=== PATIENT | female | born 1950 | race Two or more races ===

== ENCOUNTER 2017-05-04 10:51 | Inpatient (IN) | payer OTHER, MEDICARE ==
[~2017-05-04] VITALS: Ht 167.6 cm; Wt 65.8 kg
--- NOTE | 2017-05-04 11:00 | NUR ---
BIB SON FROM HOME FOR MISTERNAL CHEST PAIN, NON RADIATING, ON AND OFF X 2 WEEKS,. PATIENT IS AAO4. APPEARS IN NO APPARENT DISTRESS,. RESPIRATION EVEN AND UNLABORED. SKIN IS WARM TO TOUCH AND NON DIAPHORETIC. PATIENT IS AFEBRILE. VSS. GOWNED AND PLACED PT ON TELE MONITOR
--- NOTE | 2017-05-04 11:06 | NUR ---
MD TIERNEY AT BEDSIDE
[2017-05-04] MEDS ORDERED: ASPIRIN EC 81 MG TABLET.DR PO ONE ×2 (11:12→11:30)
--- NOTE | 2017-05-04 11:18 | NUR ---
CALLED NURSING SUP. FOR TELE BED
[2017-05-04 11:21] LABS: BASOPHILS % (AUTO) 0.2 % (0.0-2.0); EOSINOPHILS # (AUTO) 0.1 /CMM (0.0-0.7); EOSINOPHILS % (AUTO) 1.2 % (0.0-6.0); HEMATOCRIT 38 % (33-45); HEMOGLOBIN 12.7 g/dL (11.5-14.8); LYMPHOCYTES # (AUTO) 1.7 /CMM (0.8-4.8); LYMPHOCYTES % (AUTO) 23.7 % (20.0-44.0); MEAN CORPUSCULAR HEMOGLOBIN 29 PG (26.0-33.0); MEAN CORPUSCULAR HGB CONC 33 g/dl (31.0-36.0); MEAN CORPUSCULAR VOLUME 87 fL (82-100); MONOCYTES # (AUTO) 0.5 /CMM (0.1-1.30); MONOCYTES % (AUTO) 6.8 % (2.0-12.0); NEUTROPHILS # (AUTO) 5.1 /CMM (1.8-8.9); NEUTROPHILS % (AUTO) 68.1 % (43.0-81.0); PLATELET COUNT (AUTO) 251 /CMM (150-450); RDW COEFFICIENT OF VARIATION 12.2 (11.5-15.0); RED BLOOD CELL COUNT(AUTO) 4.36 MIL/uL (4.0-5.2); WHITE BLOOD COUNT (AUTO) 7.4 K/uL (4.3-11.0)
[2017-05-04] MEDS ORDERED: IV NS 0.9% 500 ML BAG IV ONE (11:30)
[2017-05-04 11:32] LABS: CALCIUM, SERUM 9.1 mg/dL (8.5-10.1); CARBON DIOXIDE 28 mmol/L (21-32); CHLORIDE 108 mmol/L (98-107); CREATININE 0.7 mg/dL (0.6-1.3); GLUCOSE 97 mg/dL (74-106); POTASSIUM 3.6 mmol/L (3.5-5.1); SODIUM SERUM 143 mmol/L (136-145); UREA NITROGEN, BLOOD 11 mg/dL (7-18)
[2017-05-04 11:35] LABS: INR 1.02 (0.87-1.13); PROTHROMBIN TIME 10.6 SECS (9.5-12.7)
[2017-05-04 11:38] LABS: ALANINE AMINOTRANSFERASE 22 U/L (12-78); ALBUMIN 3.5 g/dL (3.4-5.0); ALKALINE PHOSPHATASE 77 U/L (46-116); ASPARTATE AMINOTRANSFERASE 19 U/L (15-37); BILIRUBIN,DIRECT 0.1 mg/dL (0.0-0.2); BILIRUBIN,TOTAL 0.5 mg/dL (0.2-1.0); LIPASE 126 U/L (73-393); TOTAL PROTEIN, SERUM 6.6 g/dL (6.4-8.2)
[2017-05-04 11:39] LABS: TROPONIN I < 0.017 ng/mL (0.00-0.056)
[2017-05-04] MEDS ORDERED: ATEN25TA PO (11:55)
[2017-05-04] MEDS ORDERED: ASPI-991 PO (11:55)
[2017-05-04] MEDS ORDERED: ATOR40TA PO (11:56)
--- NOTE | 2017-05-04 12:07 | NUR ---
AURORA PAGED, CRUSHER WET GROUND MICA
[2017-05-04 12:12] LABS: APPEARANCE,URINE Clear (CLEAR); BILIRUBIN,URINE Negative (NEGATIVE); BLOOD, URINE Moderate Ery/uL (NEGATIVE); COLOR,URINE Yellow (YELLOW); KETONES,URINE Negative (NEGATIVE); LEUKOCYTE ESTERASE ,URINE Negative (NEGATIVE); NITRITE, URINE Negative (NEGATIVE); PROTEIN,URINE Negative (NEGATIVE); UGLUCOSE Negative (NEGATIVE); UROBILINOGEN,URINE 0.2 EU/dL (0.2)
[2017-05-04 12:21] LABS: BACTERIA,URINE Few /HPF (None Seen); SQUAMOUS EPITHELIAL CELL,UR Few /HPF (None Seen); WBC,URINE 0-2 /HPF (0-3)
--- NOTE | 2017-05-04 12:25 | NUR ---
REPORT GIVEN TO STEFANO ESCALANTE FOR CONTINUITY OF CARE
[2017-05-04 13:24] VITALS: BP 122/70
[2017-05-04] MEDS ORDERED: MORPHINE SULFATE INJ 2 MG/ML DISP.SYRIN IV PRN (13:30)
[2017-05-04] MEDS ORDERED: Z GUARD REMEDY 2 OZ OINT TP PRN (13:30)
[2017-05-04] MEDS ORDERED: NITROGLYCERIN 0.4 MG/TAB BOTTLE SL PRN (13:30)
[2017-05-04] MEDS ORDERED: ONDANSETRON HCL/PF 4 MG/2 ML VIAL IVP PRN (13:30)
[2017-05-04] MEDS ORDERED: MAG HYDROX/AL HYDROX/SIMETH 30 ML UDC PO PRN (13:30)
[2017-05-04] MEDS ORDERED: HYDROCODONE/APAP 5/325MG 1 EACH TABLET PO PRN (13:30)
[2017-05-04] MEDS ORDERED: ACETAMINOPHEN 325 MG TABLET PO PRN (13:30)
[2017-05-04] MEDS ORDERED: MAGNESIUM HYDROXIDE 30 ML UDC PO PRN (13:30)
[2017-05-04] MEDS ORDERED: ZOLPIDEM TARTRATE 5 MG TABLET PO PRN (13:30)
--- NOTE | 2017-05-04 14:11 | NUR ---
EKG CANCEL AT 1300. PT HAD EKG DONE IN ER. SPOKE WITH DR VELASCO. PER MD TO DO EKG IN 6HRS FROM TIME ER EKG WAS DONE. WILL PERFORM EKG AT 1700. RN AND AWARE.
--- NOTE | 2017-05-04 14:17 | NUR ---
WINDSMITHBEEH[facility] KILN CHARCOAL BURNER NOTE: ADMITTED PT FROM ER W/DX OF CHEST PAIN UNDER DR. DARRON BRANNON. PATIENT A&OX4, BELONGINGS CHECKED. VS TAKEN. HOSPITAL ORIENTATION DONE. PLACED ON TELE MONITOR. BED LOW, LOCKED WITH CALL LIGHT WITHIN REACH, BED ALARM ON. EKG AND TROPONIN ORDERED. LAC IV HEP LOCK INTACT W/NO S/S OF INFECTION. NO COMPLAINTS ON PAIN OR DISCOMFORT AT THIS TIME. ALL NEEDS MET AND ANTICIPATED. WILL CONTINUE TO MONITOR CLOSELY.
--- NOTE | 2017-05-04 15:36 | NUR ---
JOURNAL BOX INSPECTOR NOTE STRESS TEST CONSENT SIGNED BY PATIENT
[2017-05-04 16:00] VITALS: BP_SYST 129; BP_DIAS 69; BP_DIAS 99
[2017-05-04] MEDS: ATENOLOL 25 MG TABLET PO SCH (16:06)
--- NOTE | 2017-05-04 17:17 | NUR ---
MOTHER'S HELPER NOTE 2D ECHO AND EKG DONE ORDERED
--- NOTE | 2017-05-04 19:05 | NUR ---
RN OPENING NOTES RECEIVED REPORT FROM AVA AGARWAL. PATIENT A/A/O X4, MOSTLY HAITIAN SPEAKING. BREATHING EVEN AND UNLABORED, ON RA. NO SOB OR RESPIRATORY DISTRESS. ON TELE SINUS RHYTHM IN THE HIGH 60S. DENIES ANY CHEST PAIN OR DISCOMFORT @ THIS TIME. LEFT AC #20 CDI AND FLUSHING WELL. CALL LIGHT WITHIN REACH, FAMILY @ BEDSIDE. WILL CONTINUE TO MONITOR.
--- NOTE | 2017-05-04 19:33 | NUR ---
HOSE SEAMER CLOSING NOTE: PATIENT A&OX4, AMBULATORY, CONTINENT. ON ROOM AIR WITH NO SOB. BED LOW, LOCKED WITH CALL LIGHT WITHIN REACH, BED ALARM ON. LAC IV HEP LOCK INTACT AND PATENT. FAMILY AT BEDSIDE. ALL NEEDS MET AND ANTICIPATED. WILL ENDORSE TO PM NURSE FOR SHANICE.
[2017-05-04 20:00] VITALS: BP 126/73
--- NOTE | 2017-05-04 20:00 | NUR ---
RN NOTES LEFT AC IV REMOVED B/C PATIENT C/O TOO MUCH PAIN AND DISCOMFORT W/ IV SITE. REQUESTED TO BE REMOVED BY PATIENT. RISKS & BENEFITS EXPLAINED.
[2017-05-04 20:15] VITALS: BP 126/73
[2017-05-04] MEDS ORDERED: ATORVASTATIN 40 MG TABLET PO SCH (22:00)
[2017-05-05] VITALS (7 sets, daily range): BP systolic 99–137; BP diastolic 54–99
--- NOTE | 2017-05-05 02:45 | NUR ---
TELE/RN NOTES RECEIVED PT IN STABLE CONDITION. SLEEPING AT THIS TIME. BREATHING EVENLY ON RA. TELE READING NSR. NPO MAINTAINED FOR STRESS TEST IN AM. NO COMPLAINTS AND APPEARS COMFORTABLE. GRANDSON AT BEDSIDE. BED AT LOWEST POSITION AND LOCKED, SRX3 UP, HOB ELEVATED, SIDE TABLE AND CALL NG WITHIN REACH. WILL CONTINUE TO MONITOR.
--- NOTE | 2017-05-05 07:25 | NUR ---
TELE/RN NOTES A&OX4. RA WITH NO SOB. TELE READING NSR. NPO STATUS MAINTAINED. PT MADE AWARE SHE NEEDS IV FOR STRESS TEST. VERBALIZED UNDERSTANDING AND WILL ALLOW TO HAVE IT INSERTED THIS MORNING. NO EPISODE OF CHEST PAIN AND NO OTHER CONCERNS MADE. FAMILY AT BEDSIDE. ENDORSED TO AM SHIFT FOR CONTINUITY OF CARE. SIDE TABLE AND CALL NG WITHIN REACH.
[2017-05-05 07:29] LABS: EOSINOPHILS # (AUTO) 0.1 /CMM (0.0-0.7); EOSINOPHILS % (AUTO) 1.6 % (0.0-6.0); HEMATOCRIT 38 % (33-45); HEMOGLOBIN 13.1 g/dL (11.5-14.8); LYMPHOCYTES # (AUTO) 1.9 /CMM (0.8-4.8); LYMPHOCYTES % (AUTO) 20.7 % (20.0-44.0); MEAN CORPUSCULAR HEMOGLOBIN 30 PG (26.0-33.0); MEAN CORPUSCULAR HGB CONC 34 g/dl (31.0-36.0); MEAN CORPUSCULAR VOLUME 88 fL (82-100); MONOCYTES # (AUTO) 0.6 /CMM (0.1-1.30); MONOCYTES % (AUTO) 6.4 % (2.0-12.0); NEUTROPHILS # (AUTO) 6.4 /CMM (1.8-8.9); NEUTROPHILS % (AUTO) 71.3 % (43.0-81.0); PLATELET COUNT (AUTO) 230 /CMM (150-450); RDW COEFFICIENT OF VARIATION 13.3 (11.5-15.0); RED BLOOD CELL COUNT(AUTO) 4.34 MIL/uL (4.0-5.2)
[2017-05-05] MEDS ORDERED: PANTOPRAZOLE 40 MG TABLET.DR PO SCH (07:30)
[2017-05-05 07:44] LABS: CALCIUM, SERUM 8.5 mg/dL (8.5-10.1); CREATININE 0.5 mg/dL (0.6-1.3); MAGNESIUM 1.8 mg/dL (1.8-2.4); POTASSIUM 3.4 mmol/L (3.5-5.1)
[2017-05-05] MEDS: ATENOLOL 25 MG TABLET PO SCH ×2 (09:00→17:00)
[2017-05-05] MEDS ORDERED: ASPIRIN EC 81 MG TABLET.DR PO SCH (09:00)
[2017-05-05] MEDS ORDERED: REGADENOSON 0.4 MG/5 ML DISP.SYRIN IVP ONE (12:00)
[2017-05-05] MEDS ORDERED: POTASSIUM CL. PREMIX PERIPHER. 50 ML IV SCH (12:08)
[2017-05-05] MEDS ORDERED: POTASSIUM CHLORIDE 20 MEQ TAB.PRT.SR PO SCH (12:30)
--- NOTE | 2017-05-05 12:43 | NUR ---
returned from [facility]- patient requesting remove IV because giving her anxiety. IV removed. nuclear medicine Dmitry stated ok to eat- npo d/gabbi.
[2017-05-05] MEDS ORDERED: Nitroglycerin SL (14:20)
--- NOTE | 2017-05-05 16:34 | NUR ---
NM;MPI WAS COMPLETED . TECH:RB
[2017-05-05 17:17] LABS: THYROID STIMULATING HORMONE 1.074 uIU/mL (0.358-3.74)
--- NOTE | 2017-05-05 17:45 | NUR ---
SPOKE TO DR. GREENE ABOUT [place] RESULTS. DR. GREENE SAID OK FOR PATIENT TO GO HOME WITH FAMILY, NO F/U APPOINTMENT. INFORMED PATIENT AND FAMILY OF THIS. FAMILY REQUESTED ALL DX RESULTS- THEY WERE PROVIDED. FAMILY INQUIRING ABOUT CT ABD RESULTS, DR. ROB STATED "THEY ARE INCIDENTAL FINDINGS, NO ACTIVE PROBLEMS AND THERE IS NOTHING TO TALK ABOUT, IT IS A NEGATIVE CT SCAN." INFORMED PATIENT AND FAMILY OF THIS. THEY SAID OK AND AGREED WITH DISCHARGE PLAN. PROVIDED ALL D/C INFORMATION INCLUDING MEDICATION EDUCATION, RETURN IN CASE OF EMERGENCY, HEALTHY LIFE STYLE MODIFICATIONS AND ANXIETY COPING MECHANISMS. THEY VERBALIZED UNDERSTANDING AND THANKS. PATIENT HAS NO IV, PATIENT REFUSED VACCINES FOR FEAR OF EFFECTS. PATIENT WANTS TO WALK OUT TO CAR WITH FAMILY. PATIENT IS STABLE, VS STABLE AND RECORDED IN D/C SUMMARY.PRESCRIPTION PROVIDED. PHONE NUMBER OF MD PROVIDED. FAMILY VERBALIZED WITH FOLLOW UP WITH PCP.
[2017-05-05 17:46] LABS: PHOSPHORUS 3.4 mg/dL (2.5-4.9)
== END 2017-05-05 17:58 | disposition home or self-care (01) | DRG 243 ==
LOC: EDBD → MERGE 10:52 → ER 10:52 → TELE1 12:51
DX: K21.9 Gastro-esophageal reflux disease without esophagitis (principal); I10 Essential (primary) hypertension; E78.5 Hyperlipidemia, unspecified
CPT/HCPCS: 36415; 71010-TC; 72128-TC; 80048-TC; 80061-TC; 80076-TC; 81000-TC; 83690-TC; 83735-TC; 83880; 84100-TC; 84443-TC; 84484-TC; 85025-TC; 85730-TC; 87081-TC; 93307-TC; A4606; A9502; J2785; J3490; J7040; Z7610

== ENCOUNTER 2019-06-09 08:09 | Inpatient (IN) | payer MEDICARE, OTHER ==
[~2019-06-09] VITALS: Ht 165.1 cm; Wt 69.4 kg
[~2019-06-09 08:09] MED LIST: ASPI-1152 PO; ATEN25TA PO; ATOR40TA PO; Nitroglycerin SL
--- NOTE | 2019-06-09 08:15 | NUR ---
BS on arrival is 154, nadia urbina made aware.
--- NOTE | 2019-06-09 08:16 | NUR ---
DR CALLAWAY AT BS FOR EVAL.
--- NOTE | 2019-06-09 08:25 | NUR ---
МАРИЯ RA 87 from Home "Back pain/generalized weakness x3days worse today ?fainted/almost fainted +Panic/Tachy on scene " Patient a/ox2-3 cambodian speaking, sons at bedside, providing history. Patient changed into gown and attached to the monitor, moaning and appears to be anxious. Patient kept comfortable.
[2019-06-09] MEDS ORDERED: IV NS 0.9% 1,000 ML BAG IV ONE ×2 (08:30→10:00)
[2019-06-09 08:36] LABS: WHITE BLOOD COUNT (AUTO) 12.5 K/uL (4.3-11.0)
[2019-06-09 08:44] LABS: BASOPHILS % (AUTO) 0.1 % (0.0-2.0); HEMATOCRIT 41 % (33-45); HEMOGLOBIN 13.7 g/dL (11.5-14.8); LYMPHOCYTES # (AUTO) 0.6 /CMM (0.8-4.8); MEAN CORPUSCULAR HGB CONC 34 g/dl (31.0-36.0); MEAN CORPUSCULAR VOLUME 88 fL (82-100); MONOCYTES # (AUTO) 0.9 /CMM (0.1-1.30); MONOCYTES % (AUTO) 7.4 % (2.0-12.0); NEUTROPHILS # (AUTO) 10.9 /CMM (1.8-8.9); NEUTROPHILS % (AUTO) 87.5 % (43.0-81.0); PLATELET COUNT (AUTO) 198 /CMM (150-450); RED BLOOD CELL COUNT(AUTO) 4.58 MIL/uL (4.0-5.2)
[2019-06-09 08:47] LABS: CARBON DIOXIDE 27 mmol/L (21-32); CHLORIDE 101 mmol/L (98-107); CREATININE 0.8 mg/dL (0.6-1.3); GLUCOSE 163 mg/dL (74-106); POTASSIUM 3.6 mmol/L (3.5-5.1); SODIUM SERUM 136 mmol/L (136-145); UREA NITROGEN, BLOOD 16 mg/dL (7-18)
[2019-06-09 08:53] LABS: ALANINE AMINOTRANSFERASE 20 U/L (12-78); ALBUMIN 3.2 g/dL (3.4-5.0); ALKALINE PHOSPHATASE 76 U/L (46-116); ASPARTATE AMINOTRANSFERASE 18 U/L (15-37); BILIRUBIN,DIRECT 0.2 mg/dL (0.0-0.2); TOTAL PROTEIN, SERUM 7.1 g/dL (6.4-8.2)
--- NOTE | 2019-06-09 09:09 | NUR ---
patient taken to ct.
[2019-06-09 09:27] LABS: APPEARANCE,URINE Slightly Cloudy (CLEAR); BILIRUBIN,URINE Negative (NEGATIVE); BLOOD, URINE Large Ery/uL (NEGATIVE); COLOR,URINE Dark (YELLOW); KETONES,URINE 80 (NEGATIVE); LEUKOCYTE ESTERASE ,URINE Small (NEGATIVE); NITRITE, URINE Positive (NEGATIVE); PROTEIN,URINE >=300 mg/dl (NEGATIVE); UGLUCOSE Negative (NEGATIVE); UROBILINOGEN,URINE 0.2 EU/dL (0.2)
[2019-06-09 09:43] LABS: BACTERIA,URINE 3+ /HPF (None Seen); RBC,URINE 51-80 /HPF (0-2); SQUAMOUS EPITHELIAL CELL,UR Few /HPF (None Seen); WBC,URINE TOO NUMEROUS TO COUN /HPF (0-3)
--- NOTE | 2019-06-09 09:48 | NUR ---
CALLED NURSING SUP. FOR TELE BED.
[2019-06-09] MEDS ORDERED: CEFTRIAXONE 1GM BAG (ER ONLY) 50 ML IV ONE ×2 (09:50→10:00)
[2019-06-09] MEDS ORDERED: ACETAMINOPHEN ES 500 MG TABLET ONE (09:54)
--- NOTE | 2019-06-09 10:03 | NUR ---
TELE1/RN REPORT FROM ER REPORT RECEIVED FROM ER NURSE YOON FOR PT TO BE ADMITTED FOR PYELONEPHRIS UNDER THE CARE OF YANA LICONA. AWAITING FOR PT'S ARRIVAL.
--- NOTE | 2019-06-09 10:15 | NUR ---
REPORT GIVEN TO ANDREA-STEFANO,TRANSPORTED PATIENT TO [facility] VIA ACLS PROTOCOL.
--- NOTE | 2019-06-09 10:30 | NUR ---
TELE1/CAR DELIVERER TO TELE1 - 115#1 PT ARRIVED VIA GURNEY ACCOMPANIED BY ER NURSE YOON WITH PT'S (2) SONS. PT A/O X 3, COMPLAINT OF HEADACHE. ON ROOM AIR SATURATING @ , RESPIRATIONS EVEN & UNLABORED, LUNG SOUNDS CLEAR. ON TELE WITH SINUS TACHY WITH PVCs, HR 107. ARRIVED WITH ON GOING IV INFUSION OF NS, IV SITE PATENT WITH NO S/S OF INFECTION. YANA LICONA, EXAMINED PT AT BEDSIDE. AWAITING FOR ADMISSION ORDERS. PT ORIENTED TO HER SURROUNDINGS, CL WITHIN REACHED AND SAFETY MAINTAINED.
[2019-06-09] MEDS ORDERED: TEMAZEPAM 15 MG CAPSULE PO PRN (11:00)
[2019-06-09] MEDS ORDERED: MORPHINE SULFATE INJ 2 MG/ML DISP.SYRIN IV PRN (11:00)
[2019-06-09] MEDS ORDERED: MAGNESIUM HYDROXIDE 30 ML UDC PO PRN (11:00)
[2019-06-09] MEDS ORDERED: MAG HYDROX/AL HYDROX/SIMETH 30 ML UDC PO PRN (11:00)
[2019-06-09] MEDS ORDERED: ERGO500014 PO (11:06)
[2019-06-09] MEDS ORDERED: DIAZ5TAB4 PO (11:06)
[2019-06-09] MEDS ORDERED: ESTR42.511 VG (11:06)
[2019-06-09] MEDS: IV NS 0.9% 1,000 ML IV PRN ×2 (11:26→18:51)
[2019-06-09 12:00] VITALS: BP 115/60
[2019-06-09] MEDS: ACETAMINOPHEN 325 MG TABLET PO PRN ×2 (14:33→20:08)
[2019-06-09 16:00] VITALS: BP 120/63
--- NOTE | 2019-06-09 16:00 | NUR ---
TELE1/RN FEVER PT NOTED WITH TEMP 101.2, PT ALREADY TOOK TYLENOL AROUND 1430, COOLING MEASURES GIVEN. ON GOING MONITORING.
--- NOTE | 2019-06-09 18:41 | NUR ---
TELE1/RN TEMP CHECK TEMP 97.5 ORALLY. NO CHANGE OF CONDITION.
--- NOTE | 2019-06-09 19:15 | NUR ---
TELE1/RN AM SHIFT END NOTES ALL NEEDS MET. NO ACUTE CHANGE OF CONDITION NOTED DURING THE SHIFT. PT ENDORSED TO PM NURSE TO CONTINUE CARE. CL WITHIN REACHED AND SAFETY MAINTAINED
--- NOTE | 2019-06-09 19:30 | NUR ---
MS RN OPENING NOTES RELIEVED PATIENT IN BED AWAKE/ALERT X3. PATIENT HAS CONT. NS ON LFA#20, 125ML/HR . PATIENT IS ON RA TOLERATING WELL. FAMILY AT BED SIDE. NO ACUTE DISTRESSES OR SOB IS NOTED AT THIS TIME. CALL WITHIN REACHED AND SAFETY MAINTAINED, BED LOCKED/LOW POSITION, WILL CONTINUE TO MONITOR.
[2019-06-09 20:00] VITALS: BP 129/70
[2019-06-09] MEDS: ONDANSETRON HCL/PF 4 MG/2 ML VIAL IVP PRN (20:30)
--- NOTE | 2019-06-10 00:03 | NUR ---
MS AGARWAL NOTE, PATIENT'S FAMILY REFUSED THE VITAL SIGNS AT THIS TIME. THEY WANT THE MOTHER TO SLEEP AND NOT BE INTERRUPTED.. Addendum: 06/10/19 at 0004 by INGRID SIFUENTES RN Amended: Links added.
[2019-06-10] MEDS: IV NS 0.9% 1,000 ML IV PRN ×2 (03:06→17:29)
[2019-06-10 04:00] VITALS: BP 118/60
[2019-06-10] MEDS: ACETAMINOPHEN 325 MG TABLET PO PRN ×3 (04:49→23:03)
--- NOTE | 2019-06-10 06:51 | NUR ---
MS RN OPENING NOTES PATIENT IN BED AWAKE/ALERT X3. PATIENT HAS CONT. NS ON LEFT HAND#22, 125ML/HR . PATIENT IS ON RA TOLERATING WELL. PATIENT HAD X3 EMESIS DURING NIGHT, ZOFRAN WAS ADMITTED. NO ACUTE DISTRESSES OR SOB IS NOTED AT THIS TIME. CALL LIGHT WITHIN REACHED AND SAFETY MAINTAINED, BED LOCKED/LOW POSITION, WILL ENDORSE TO AM NURSE FOR SHANICE.
[2019-06-10 07:22] LABS: CALCIUM, SERUM 7.9 mg/dL (8.5-10.1); CREATININE 0.7 mg/dL (0.6-1.3); MAGNESIUM 1.5 mg/dL (1.8-2.4); PHOSPHORUS 1.9 mg/dL (2.5-4.9)
[2019-06-10 07:26] LABS: POTASSIUM 2.6 mmol/L (3.5-5.1)
[2019-06-10 07:32] LABS: BASOPHILS % (AUTO) 0.2 % (0.0-2.0); HEMATOCRIT 34 % (33-45); HEMOGLOBIN 11.3 g/dL (11.5-14.8); LYMPHOCYTES # (AUTO) 0.5 /CMM (0.8-4.8); LYMPHOCYTES % (AUTO) 7.3 % (20.0-44.0); MEAN CORPUSCULAR HGB CONC 33 g/dl (31.0-36.0); MEAN CORPUSCULAR VOLUME 89 fL (82-100); MONOCYTES # (AUTO) 0.7 /CMM (0.1-1.30); NEUTROPHILS # (AUTO) 6.1 /CMM (1.8-8.9); NEUTROPHILS % (AUTO) 83.5 % (43.0-81.0); PLATELET COUNT (AUTO) 145 /CMM (150-450); RED BLOOD CELL COUNT(AUTO) 3.82 MIL/uL (4.0-5.2); WHITE BLOOD COUNT (AUTO) 7.3 K/uL (4.3-11.0)
[2019-06-10 08:00] VITALS: BP 116/62
[2019-06-10] MEDS ORDERED: ERGOCALCIFEROL (VITAMIN D 2) 50,000 UNIT CAPSULE PO SCH (08:00)
[2019-06-10] MEDS ORDERED: DIAZEPAM 5 MG TABLET PO PRN (08:00)
[2019-06-10] MEDS ORDERED: Magnesium 1GM/D5W 100ML PREMIX 100 ML IV SCH (08:00)
[2019-06-10] MEDS ORDERED: POTASSIUM CHLORIDE 20 MEQ TAB.PRT.SR PO ONE ×2 (08:00→09:00)
--- NOTE | 2019-06-10 08:00 | NUR ---
TELE1/RN AM SHIFT INITIAL NOTES RECEIVED PT AWAKE SITTING IN BED WITH HER SON AT BEDSIDE. PT A/O X 4, MICRONESIAN SPEAKING, DENIES ANY SYMPTOMS, NO ACUTE CHANGE OF CONDITION. ON ROOM AIR SATURATING @ 98%, RESPIRATIONS EVEN & UNLABORED, LUNG SOUNDS CLEAR. ON TELE MONITORING, SINUS RHYTHM, HR 97. WITH ON GOING IV INFUSION OF NS @ 125CC/HR, IV SITE PATENT WITH NO S/S OF INFECTION. PT IS COMFORTABLE, SCHEDULED AM MEDS TO BE GIVEN. CL WITHIN REACHED AND SAFETY MAINTAINED.
[2019-06-10] MEDS: Magnesium 1GM/D5W 100ML PREMIX 100 ML IV SCH ×2 (08:57→10:40)
[2019-06-10] MEDS ORDERED: K PHOS NEUTRAL 250 MG TABLET PO ONE (09:00)
[2019-06-10] MEDS: ATENOLOL 25 MG TABLET PO SCH ×2 (09:01→16:42)
[2019-06-10] MEDS: ASPIRIN EC 81 MG TABLET.DR PO SCH (09:01)
[2019-06-10] MEDS: ATORVASTATIN 40 MG TABLET PO SCH ×2 (09:01→22:14)
[2019-06-10] MEDS ORDERED: NEUTRA PHOS 1 POWD.PACKET PO ONE (09:30)
--- NOTE | 2019-06-10 09:59 | NUR ---
TELE11/RN ROUNDS - DR. GREENE PT SEEN & EVALUATED BY DR. GREENE. NO NEW ORDERS RECEIVED AT THIS TIME. MONITORING CONTINUED.
[2019-06-10 10:23] LABS: IRON, SERUM 10 ug/dl (50-175); TOTAL IRON BINDING CAPACITY 187 ug/dl (250-450)
[2019-06-10 10:38] LABS: FERRITIN 268 ng/mL (8-388); THYROID STIMULATING HORMONE 0.009 uIU/mL (0.358-3.74)
[2019-06-10] MEDS: ENOXAPARIN SODIUM 40 MG/0.4 ML DISP.SYRIN SQ SCH (10:40)
[2019-06-10] MEDS: HYDROCODONE/APAP 5/325MG 1 EACH TABLET PO PRN (10:53)
[2019-06-10] MEDS ORDERED: CEFTRIAXONE 1 G in IV D5W 50 ML IV SCH (11:00)
--- NOTE | 2019-06-10 11:00 | NUR ---
TELE1/RN ROUNDS - YNAA LICONA UPDATED PT'S CONDITION. PT SEEN & EXAMINED BY YANA LICONA. NO NEW ORDERS RECEIVED AT THIS TIME. MONITORING CONTINUED.
[2019-06-10] MEDS: PIPERACILLIN /TAZOBACTAM 3.375 G in IV D5W 50 ML IV SCH ×3 (11:56→23:45)
[2019-06-10] MEDS: POTASSIUM CHLORIDE 20 MEQ TAB.PRT.SR PO SCH ×2 (11:56→14:09)
[2019-06-10 12:00] VITALS: BP 127/66
--- NOTE | 2019-06-10 14:00 | NUR ---
TELE1/RN PHYSICAL THERAPY PT AMBULATED WITH PHYSICAL THERAPIST WITH MINIMUM ASSISTANCE, TOLERATED ACTIVITY.
[2019-06-10 16:00] VITALS: BP 130/60
[2019-06-10] MEDS ORDERED: ESTRADIOL TP SCH ×2 (17:00→22:00)
--- NOTE | 2019-06-10 19:21 | NUR ---
MS RN OPENING NOTES RELIEVED PATIENT IN BED AWAKE/ALERT X3. PATIENT HAS CONT. NS @125ML/HR . PATIENT IS ON RA TOLERATING WELL. FAMILY AT BED SIDE. NO ACUTE DISTRESSES OR SOB IS NOTED AT THIS TIME. PATIENT HAS LOW FEVER 100.4, WILL CONTINUE TO MONITOR. CALL WITHIN REACHED AND SAFETY MAINTAINED, BED LOCKED/LOW POSITION, WILL CONTINUE TO MONITOR.
[2019-06-10] MEDS: ONDANSETRON HCL/PF 4 MG/2 ML VIAL IVP PRN (19:30)
--- NOTE | 2019-06-10 20:31 | NUR ---
ENGRAVER COPPERPLATE NOTES, PATIENT'S FAMILY REFUSED THE VITAL SIGN AT 1999, THEY DIDN'T WANT HER TO BE INTERRUPTED SINCE SHE IS SLEEPING NOW. LOW FEVER NOTED AT 1700 100.4. WILL CONTINUE TO MONITOR Addendum: 06/10/19 at 2037 by INGRID SIFUENTES RN Amended: Links added.
[2019-06-10 21:00] VITALS: BP 134/77
[2019-06-10] MEDS: ESTRADIOL TP SCH (22:29)
[2019-06-11] VITALS (8 sets, daily range): BP systolic 100–125; BP diastolic 42–70
[2019-06-11] MEDS: IV NS 0.9% 1,000 ML IV PRN (03:40)
[2019-06-11] MEDS: PIPERACILLIN /TAZOBACTAM 3.375 G in IV D5W 50 ML IV SCH ×2 (05:58→12:28)
[2019-06-11] MEDS: ACETAMINOPHEN 325 MG TABLET PO PRN ×2 (06:26→19:56)
--- NOTE | 2019-06-11 06:36 | NUR ---
INTERACTIVE MEDIA DIRECTOR CLOSING NOTES PATIENT IN BED, AWAKE/ALERT X3. PATIENT HAS CONT. NS @125ML/HR. 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 PATIENT IS ON RA TOLERATING WELL. NO ACUTE DISTRESSES OR SOB IS NOTED AT THIS TIME. CALL LIGHT WITHIN REACHED AND SAFETY MAINTAINED, BED LOCK/LOW POSITION, WILL ENDORSE PATIENT TO AM SHIFT FOR SHANICE.
[2019-06-11 07:15] LABS: BASOPHILS % (AUTO) 0.3 % (0.0-2.0); EOSINOPHILS % (AUTO) 0.3 % (0.0-6.0); HEMATOCRIT 36 % (33-45); HEMOGLOBIN 12.1 g/dL (11.5-14.8); LYMPHOCYTES # (AUTO) 0.9 /CMM (0.8-4.8); LYMPHOCYTES % (AUTO) 18.1 % (20.0-44.0); MEAN CORPUSCULAR HGB CONC 33 g/dl (31.0-36.0); MEAN CORPUSCULAR VOLUME 89 fL (82-100); MONOCYTES # (AUTO) 0.5 /CMM (0.1-1.30); MONOCYTES % (AUTO) 9.8 % (2.0-12.0); NEUTROPHILS # (AUTO) 3.6 /CMM (1.8-8.9); NEUTROPHILS % (AUTO) 71.5 % (43.0-81.0); PLATELET COUNT (AUTO) 155 /CMM (150-450); RED BLOOD CELL COUNT(AUTO) 4.11 MIL/uL (4.0-5.2)
[2019-06-11 07:30] LABS: ALBUMIN 2.5 g/dL (3.4-5.0); BILIRUBIN,TOTAL 0.3 mg/dL (0.2-1.0); CALCIUM, SERUM 8.3 mg/dL (8.5-10.1); CREATININE 0.6 mg/dL (0.6-1.3); MAGNESIUM 1.8 mg/dL (1.8-2.4); PHOSPHORUS 2.1 mg/dL (2.5-4.9); POTASSIUM 3.2 mmol/L (3.5-5.1); TOTAL PROTEIN, SERUM 6.2 g/dL (6.4-8.2)
--- NOTE | 2019-06-11 08:00 | NUR ---
TELE1/RN AM SHIFT INITIAL NOTES RECEIVED PT ASLEEP IN BED, EASILY AROUSED, WITH HER SON AT BEDSIDE. A/O X 3, COMPLAINT OF HEADACHE, ALSO NOTED WITH ELEVATED TEMPERATURE OF 101.3, PT HAD JUST TAKEN TYLENOL FROM PREVIOUS SHIFT, COOLING MEASURES BEING APPLIED. ON ROOM AIR SATURATING @ 93%, RESPIRATIONS EVEN & UNLABORED, LUNG SOUNDS CLEAR. ON TELE MONITORING, SINUS TACHY, HR 111. WITH ON GOING IV INFUSION OF NS @ 125CC/HR, IV SITE PATENT WITH NO S/S OF INFECTION. SCHEDULED AM MEDS TO BE GIVEN. CL WITHIN REACHED AND SAFETY MAINTAINED.
[2019-06-11] MEDS: ATENOLOL 25 MG TABLET PO SCH ×2 (08:07→16:43)
[2019-06-11] MEDS: ASPIRIN EC 81 MG TABLET.DR PO SCH (08:07)
[2019-06-11] MEDS: ENOXAPARIN SODIUM 40 MG/0.4 ML DISP.SYRIN SQ SCH (08:07)
--- NOTE | 2019-06-11 08:55 | NUR ---
TELE1/RN ROUNDS - YANA LICONA UPDATED PT'S CONDITION. PT SEEN & EXAMINED BY YANA LICONA, NOTED NEW ORDER FOR POTASSIUM REPLACEMENT. TO BE CARRIED OUT.
[2019-06-11] MEDS ORDERED: IV NS 0.9% 1,000 ML IV PRN (08:56)
[2019-06-11] MEDS: POTASSIUM CHLORIDE 20 MEQ TAB.PRT.SR PO SCH ×3 (09:11→13:17)
[2019-06-11] MEDS: IBUPROFEN 400 MG TABLET PO PRN ×2 (09:13→17:11)
[2019-06-11] MEDS ORDERED: K PHOS NEUTRAL 250 MG TABLET PO ONE (11:00)
[2019-06-11] MEDS ORDERED: NEUTRA PHOS 1 POWD.PACKET PO SCH (11:30)
[2019-06-11] MEDS ORDERED: POTASSIUM CHLORIDE 20 MEQ TAB.PRT.SR PO SCH (12:00)
[2019-06-11] MEDS: SOD FERRIC GLUC 125 MG in IV NS 0.9% 100 ML IV SCH (13:17)
[2019-06-11] MEDS ORDERED: PIPERACILLIN /TAZOBACTAM 3.375 G in IV D5W 100 ML IV SCH (17:00)
--- NOTE | 2019-06-11 17:00 | NUR ---
MS1/RN AFTERNOON ROUNDS PT HAS BEEN VOIDING FREQUENTLY WITH MINIMAL OUTPUT THROUGHOUT THE DAY, COMPLAINING OF ABDOMEN DISCOMFORT AND HEADACHE. MONITORING.
--- NOTE | 2019-06-11 18:00 | NUR ---
MS1/RN ROUNDS - SENIOR MANAGING DIRECTOR DIANA BLADDER SCANNED PT, RESULTED TO 601 URINE RETENTION. VERBAL ORDER RECEIVED TO INSERT MERCADO CATHETER. ORDER NOTED AND CARRIED OUT.
[2019-06-11] MEDS: CEFTRIAXONE 2 G in IV D5W 100 ML IV SCH (18:37)
--- NOTE | 2019-06-11 19:50 | NUR ---
MS1/RN AM SHIFT END NOTES ALL NEEDS MET. MERCADO CATHETER INTACT AND IV SITE PATENT ON TKO. PT ENDORSED TO PM NURSE TO CONTINUE CARE. CL WITHIN REACHED AND SAFETY MAINTAINED.
[2019-06-11] MEDS: HYDROCODONE/APAP 5/325MG 1 EACH TABLET PO PRN (19:51)
[2019-06-11] MEDS: TAMSULOSIN 0.4 MG CAP.SR.24H PO SCH (21:21)
[2019-06-11] MEDS: ATORVASTATIN 40 MG TABLET PO SCH (21:21)
[2019-06-11] MEDS: ESTRADIOL TP SCH (21:22)
[2019-06-12 04:00] VITALS: BP 124/70
--- NOTE | 2019-06-12 06:53 | NUR ---
RN NOTES, NO SIGNIFICANT CHANGE IN CONDITION DURING THE NIGHT, PATIENT COMPLAINING ABOUT MERCADO CATHETER, EXPLAINED PURPOSE OF MERCADO CATHETER AT THIS TIME, WILL ENDORSE CONTINUITY OF CARE TO ONCOMING NURSE.
--- NOTE | 2019-06-12 07:30 | NUR ---
RN OPENING NOTES RECEIVED PATIENT RESTING IN BED COMFORTABLY, FAMILY AT BEDSIDE. SHE IS AOX3, VERBAL, WITH GENERALIZED WEAKNESS. SHE IS ON RA, TOLERATING WELL, SHOWS NO S/SX OF RESP DISTRESS OR SOB. SKIN IS INTACT, RFA 22 G SL, INTACT, PATENT. SHE IS ON A CARDIAC DIET. MERCADO CATHETER IS INTACT AND PATENT. SAFETY MEASURES HAVE BEEN IMPLEMENTED, CALL LIGHT WITHIN REACH, BED IN LOWEST AND LOCKED POSITION, SIDE RAILS UP X2, WILL CONTINUE TO MONITOR FOR ANY CHANGES.
[2019-06-12 07:50] LABS: CALCIUM, SERUM 8.9 mg/dL (8.5-10.1); CREATININE 0.5 mg/dL (0.6-1.3); PHOSPHORUS 2.7 mg/dL (2.5-4.9); POTASSIUM 3.1 mmol/L (3.5-5.1)
[2019-06-12] MEDS: IBUPROFEN 400 MG TABLET PO PRN (07:57)
[2019-06-12 08:00] VITALS: BP 103/51
[2019-06-12] MEDS ORDERED: ESTRADIOL MC SCH (09:00)
[2019-06-12] MEDS: ENOXAPARIN SODIUM 40 MG/0.4 ML DISP.SYRIN SQ SCH (09:18)
[2019-06-12] MEDS: ASPIRIN EC 81 MG TABLET.DR PO SCH (09:19)
[2019-06-12] MEDS: ATENOLOL 25 MG TABLET PO SCH ×2 (09:19→17:00)
[2019-06-12] MEDS: POTASSIUM CHLORIDE 20 MEQ TAB.PRT.SR PO SCH ×3 (10:25→12:23)
[2019-06-12] MEDS: SOD FERRIC GLUC 125 MG in IV NS 0.9% 100 ML IV SCH (14:28)
[2019-06-12 16:00] VITALS: BP 101/44
--- NOTE | 2019-06-12 17:23 | NUR ---
1700 DOSE OF ATENOLOL WAS HELD BECAUSE BLOOD PRESSURE WAS WITHIN NORMAL RANGE AND PATIENT REFUSED. BP: 123/69 HR: 78
[2019-06-12] MEDS: CEFTRIAXONE 2 G in IV D5W 100 ML IV SCH (18:42)
--- NOTE | 2019-06-12 19:34 | NUR ---
RN CLOSING NOTES PATIENT IS RESTING IN BED COMFORTABLY, DENIES ANY PAIN OR DISCOMFORT AT THIS TIME, SON AT BEDSIDE. PATIENTS NEEDS HAVE BEEN MET. SAFETY MEASURES HAVE BEEN IMPLEMENTED, CALL LIGHT WITHIN REACH, BED IN LOWEST AND LOCKED POSITION, SIDE RAILS UP X2, PATIENT HAS BEEN ENDORSED TO NIGHTSHIFT RN FOR CONTINUAL CARE
--- NOTE | 2019-06-12 19:38 | NUR ---
MS/RN NOTES RECEIVED PT. SITTING UP IN BED. PT. IS AWAKE, ALERT AND ORIENTED X3. BREATHING EVEN AND UNLABORED ON ROOM AIR. NO SOB, RESPIRATORY DISTRESS OR COMPLAINTS OF PAIN NOTED AT THIS TIME. PT. WITH RIGHT FOREARM 22 GAUGE IV SALINE LOCK PRESENT, PATENT AND INTACT. PT. WITH MERCADO CATHETER PRESENT, PATENT AND INTACT. PT. WITH FAMILY MEMBERS PRESENT AT BEDSIDE. BED LOCKED AND IN LOWEST POSITION, SIDE RAILS UP X3, CALL LIGHT WITHIN REACH, WILL CONTINUE TO MONITOR.
[2019-06-12 20:00] VITALS: BP 119/81
[2019-06-12] MEDS: ATORVASTATIN 40 MG TABLET PO SCH (21:46)
[2019-06-12] MEDS: TAMSULOSIN 0.4 MG CAP.SR.24H PO SCH (21:46)
[2019-06-12] MEDS: ESTRADIOL TP SCH (21:47)
[2019-06-13 04:00] VITALS: BP 110/62
--- NOTE | 2019-06-13 05:00 | NUR ---
MS RN OPENING NOTES RECEIVED PATIENT SLEEPING IN BED, IS AWAKE, ALERT AND ORIENTED X3. BREATHING EVEN AND UNLABORED ON ROOM AIR. NO SOB, RESPIRATORY DISTRESS OR COMPLAINTS OF PAIN NOTED AT THIS TIME. PT. WITH RIGHT FOREARM 22 GAUGE IV SALINE LOCK PRESENT, PATENT AND INTACT. PT. WITH MERCADO CATHETER PRESENT, PATENT AND INTACT. PT. WITH FAMILY MEMBERS PRESENT AT BEDSIDE. BED LOCKED AND IN LOWEST POSITION, SIDE RAILS UP X3, CALL LIGHT WITHIN REACH, WILL CONTINUE TO MONITOR.
--- NOTE | 2019-06-13 05:00 | NUR ---
MS/RN NOTES GAVE REPORT AND ENDORSED PT. TO STEFANO QUINTERO FOR CONTINUITY OF CARE. PT. IS LYING IN BED RESTING, BREATHING EVEN AND UNLABORED ON ROOM AIR. NO SOB, RESPIRATORY DISTRESS OR S/S OF PAIN NOTED AT THIS TIME. PT. SON PRESENT AT BEDSIDE. BED LOCKED AND IN LOWEST POSITION, SIDE RAILS UP X3, CALL LIGHT WITHIN REACH.
[2019-06-13] MEDS: ACETAMINOPHEN 325 MG TABLET PO PRN (06:27)
--- NOTE | 2019-06-13 07:25 | NUR ---
MS RN CLOSING NOTES PATIENT SITTING UP IN BED. PATIENT IS AWAKE, ALERT AND ORIENTED X3. BREATHING EVEN AND UNLABORED ON ROOM AIR. NO SOB, RESPIRATORY DISTRESS OR COMPLAINTS OF PAIN NOTED AT THIS TIME. PT. WITH RIGHT FOREARM 22 GAUGE IV SALINE LOCK PRESENT, PATENT AND INTACT. PATIENTS MERCADO CATH WAS REMOVED AT 060. FAMILY MEMBERS PRESENT AT BEDSIDE. BED LOCKED AND IN LOWEST POSITION, SIDE RAILS UP X3, CALL LIGHT WITHIN REACH, WILL ENDORSE PATIENT TO AM RN FOR SHANICE.
[2019-06-13 08:00] VITALS: BP 99/63
[2019-06-13 09:00] VITALS: BP 99/63
[2019-06-13] MEDS: ATENOLOL 25 MG TABLET PO SCH (09:00)
[2019-06-13] MEDS: ENOXAPARIN SODIUM 40 MG/0.4 ML DISP.SYRIN SQ SCH (09:00)
[2019-06-13] MEDS: ASPIRIN EC 81 MG TABLET.DR PO SCH (09:00)
[2019-06-13 09:19] LABS: OCCULT BLOOD STOOL NEGATIVE (NEGATIVE)
[2019-06-13 09:49] LABS: ALBUMIN 2.7 g/dL (3.4-5.0); BILIRUBIN,TOTAL 0.2 mg/dL (0.2-1.0); CALCIUM, SERUM 9.1 mg/dL (8.5-10.1); CREATININE 0.7 mg/dL (0.6-1.3); POTASSIUM 3.5 mmol/L (3.5-5.1); TOTAL PROTEIN, SERUM 6.7 g/dL (6.4-8.2)
--- NOTE | 2019-06-13 11:18 | NUR ---
PATIENT CLEARED FOR D/C TO HOME BY . PATIENT WILL CONTINUE PO ANTIBIOTICS, PRESCRIPTION AND EDUCATION PROVIDED. PATIENT VERBALIZED UNDERSTANDING AND WILL F/U WITH PCP IN ONE WEEK. ALL D/C INSTRUCTIONS SIGHED, VALUABLE FORM SIGNED AND ALL BELONGINGS WITH THE PATIENT INCLUDING OWN MEDICATION. IV REMOVED , ID WRIST BAND REMOVED. PATIENT SAFELY TRANSFERRED TO [facility] ACCOMPANIED BY SON.
== END 2019-06-13 14:11 | disposition home or self-care (01) | DRG 872 ==
LOC: ER 08:13 → TELE1 10:08 → MEDSG1 06-11 11:00
PROVIDERS: ADMIT Nurse Practitioner Acute Care; ATTEND Nurse Practitioner Acute Care
DX: A41.50 Gram-negative sepsis, unspecified (principal); N10 Acute pyelonephritis; E44.1 Mild protein-calorie malnutrition; R65.20 Severe sepsis without septic shock; B96.20 Unspecified Escherichia coli [E. coli] as the cause of diseases classified elsewhere; G35 Multiple sclerosis; E03.9 Hypothyroidism, unspecified; E83.39 Other disorders of phosphorus metabolism; E83.42 Hypomagnesemia; I10 Essential (primary) hypertension; I95.9 Hypotension, unspecified; R73.9 Hyperglycemia, unspecified; E88.09 Other disorders of plasma-protein metabolism, not elsewhere classified; E86.0 Dehydration; R55 Syncope and collapse; E87.6 Hypokalemia; R00.0 Tachycardia, unspecified; Z68.25 Body mass index [BMI] 25.0-25.9, adult
CPT/HCPCS: 36415; 70450-TC; 71045-TC; 76536-TC; 80048-TC; 80053-TC; 80061-TC; 80076-TC; 81000-TC; 82272-TC; 82728-TC; 83540-TC; 83605-TC; 83735-TC; 84100-TC; 84439-TC; 84443-TC; 84484-TC; 85025-TC; 85730-TC; 86800; 87040-TC; 87081-TC; 87086-TC; 87186-TC; 93307-TC; 97116-TC; 97530-TC; G0378; J0696; J1650; J2270; J2405; J2543; J2916; J3475; J7030; J7040; J7060

== ENCOUNTER 2022-01-07 16:23 | Emergency (ER) | payer MEDICARE, OTHER ==
[~2022-01-07] VITALS: Ht 160 cm; Wt 65.8 kg
[~2022-01-07 16:23] MED LIST changes: -ASPI-1152 PO; +ASPI-1420 PO; +DIAZ5TAB4 PO; +ERGO500014 PO; +ESTR42.511 VG; -Nitroglycerin SL
--- NOTE | 2022-01-07 16:35 | NUR ---
BIB SON FROM HOME C/O R FLANK PAIN STARTED YESTERDAY. AAOX4, IN PAIN 06/18
--- NOTE | 2022-01-07 16:50 | NUR ---
URINE COLLECTED AND SENT TO LAB
[2022-01-07] MEDS ORDERED: ONDANSETRON HCL/PF 4 MG/2 ML VIAL ONE (16:53)
[2022-01-07] MEDS ORDERED: MORPHINE SULFATE INJ 4 MG/ML DISP.SYRIN ONE (16:54)
--- NOTE | 2022-01-07 17:01 | NUR ---
TAKEN TO CT
[2022-01-07 17:17] LABS: BASOPHILS # (AUTO) 0.1 K/uL (0.0-0.2); BASOPHILS % (AUTO) 0.8 % (0.0-2.0); EOSINOPHILS % (AUTO) 1.7 % (0.0-6.0); HEMATOCRIT 41 % (33-45); HEMOGLOBIN 13.6 g/dL (11.5-14.8); LYMPHOCYTES # (AUTO) 2.4 K/uL (0.8-4.8); LYMPHOCYTES % (AUTO) 27.5 % (20.0-44.0); MEAN CORPUSCULAR HGB CONC 33 g/dl (31.0-36.0); MEAN CORPUSCULAR VOLUME 89 fL (82-100); MONOCYTES # (AUTO) 0.7 K/uL (0.1-1.30); NEUTROPHILS # (AUTO) 5.3 K/uL (1.8-8.9); PLATELET COUNT (AUTO) 239 K/uL (150-450); RED BLOOD CELL COUNT(AUTO) 4.64 MIL/uL (4.0-5.2); WHITE BLOOD COUNT (AUTO) 8.6 K/uL (4.3-11.0)
[2022-01-07 17:20] LABS: BILIRUBIN,URINE NEGATIVE (NEGATIVE); COLOR,URINE YELLOW (YELLOW); LEUKOCYTE ESTERASE ,URINE NEGATIVE (NEGATIVE); NITRITE, URINE NEGATIVE (NEGATIVE); PH,URINE 6.5 (5.0-8.0); PROTEIN,URINE NEGATIVE (NEGATIVE); UGLUCOSE NEGATIVE (NEGATIVE); UROBILINOGEN,URINE 0.2 EU/dL (0.2)
[2022-01-07 17:30] LABS: BACTERIA,URINE Few /HPF (None Seen); WBC,URINE 0-2 /HPF (0-3)
[2022-01-07] MEDS ORDERED: MORPHINE SULFATE INJ 2 MG/ML DISP.SYRIN IV ONE (17:30)
[2022-01-07] MEDS ORDERED: ONDANSETRON HCL/PF 4 MG/2 ML VIAL IV ONE (17:30)
[2022-01-07 17:31] LABS: SQUAMOUS EPITHELIAL CELL,UR Few /HPF (None Seen)
[2022-01-07 17:42] LABS: ALBUMIN 3.8 g/dL (3.4-5.0); BILIRUBIN,DIRECT 0.1 mg/dL (0.0-0.2); BILIRUBIN,TOTAL 0.3 mg/dL (0.2-1.0); CALCIUM, SERUM 9.3 mg/dL (8.5-10.1); CREATININE 0.6 mg/dL (0.6-1.3); POTASSIUM 3.6 mmol/L (3.5-5.1); TOTAL PROTEIN, SERUM 7.3 g/dL (6.4-8.2)
[2022-01-07] MEDS ORDERED: HYDROCODONE/APAP 5/325MG TABLET PO ONE (18:30)
[2022-01-07] MEDS ORDERED: IBUPROFEN 600 MG TABLET PO ONE (18:30)
[2022-01-07] MEDS ORDERED: TRAM50TA2 PO (18:43)
[2022-01-07] MEDS ORDERED: IBUP-1955 PO (18:43)
--- NOTE | 2022-01-07 19:00 | NUR ---
IV removed. Catheter intact and site benign. Pressure and 4x4 applied to site. No bleeding noted.Patient discharged to home in stable condition. Written and verbal after care instructions given. Patient verbalizes understanding of instruction.
[2022-01-07 19:01] VITALS: BP 135/73
== END 2022-01-07 19:02 | disposition home or self-care (01) ==
LOC: ER 16:37
DX: R10.31 Right lower quadrant pain (principal); K80.20 Calculus of gallbladder without cholecystitis without obstruction; N28.82 Megaloureter; I10 Essential (primary) hypertension; E78.00 Pure hypercholesterolemia, unspecified; Z79.82 Long term (current) use of aspirin; Z79.899 Other long term (current) drug therapy
CPT/HCPCS: 36415; 71045; 74176; 80048; 80076; 81001; 83690; 85025; 96374; 96375; 99285; J2270; J2405